=== PATIENT | female | born 1990 | race Caucasian/White ===

== ENCOUNTER 2018-04-01 15:15 | Outpatient (CLI) | payer BC | END 2018-04-01 15:16 | disposition home or self-care (01) | LOC: CTENTCT 15:15 | PROVIDERS: ATTEND Otolaryngology Plastic Surgery within the Head & Neck | DX: J01.81 Other acute recurrent sinusitis (principal) | CPT/HCPCS: 70486 ==

== ENCOUNTER 2019-07-09 10:43 | Outpatient (CLI) | payer BC ==
--- NOTE | 2019-07-09 13:02 | CT ---
CT NECK SOFT TISSUES NONCONTRAST: 07/09/2019 HISTORY: A 28-year-old female with neck pain. 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 In general, all CT's of the neck soft tissues should always be performed with intravenous contrast, u nless IV contrast is contraindicated (the other exception is parathyroid protocol, which is the only neck CT that should be performed with and without contrast). FINDINGS: Nonspecific small nodules in the left and right lobes of the thyroid gland. No thyromegaly. Normal tr achea and larynx. Within the limitations of a noncontrast scan, no gross soft tissue abnormality is s een. No cervical lymphadenopathy. Mild reversal of curvature. No facet DJD or high grade disk space n arrowing. Lung apices are clear. IMPRESSION: 1. Limited evaluation without IV contrast. See above discussion in TECHNIQUE. 2. No gross evidence of abscess or cervical lymphadenopathy. POS: [facility]
== END 2019-07-09 10:44 | disposition home or self-care (01) ==
LOC: SCSCT 10:43
PROVIDERS: ATTEND Family Medicine
DX: M54.2 Cervicalgia (principal)
CPT/HCPCS: 70490

== ENCOUNTER 2022-05-23 09:28 | Outpatient (CLI) | payer BC | END 2022-05-23 09:29 | disposition home or self-care (01) | LOC: RAD 09:28 | PROVIDERS: ATTEND Internal Medicine Critical Care Medicine | DX: R06.09 Other forms of dyspnea (principal) | CPT/HCPCS: 71046 ==

== ENCOUNTER 2023-01-22 08:14 | Outpatient (CLI) | payer BC ==
[2023-01-22] MEDS ORDERED: Iopamidol 370 76% 100 ML VIAL ONE (09:42)
== END 2023-01-22 08:15 | disposition home or self-care (01) ==
LOC: CT 08:14
PROVIDERS: ATTEND Internal Medicine
DX: K50.10 Crohn's disease of large intestine without complications (principal)
CPT/HCPCS: 74178

== ENCOUNTER 2025-05-20 12:16 | Day surgery (SDC) | payer BC ==
[2025-05-20] MEDS ORDERED: Sodium Bicarbonate 2.5 MEQ/5 ML SDV ONE (13:39)
[2025-05-20] MEDS ORDERED: Lidocaine 1% PF 5 ML VIAL ONE (13:39)
[2025-05-20 15:28] VITALS: BP 132/76
== END 2025-05-20 15:00 | disposition home or self-care (01) ==
LOC: ULT 12:16
PROVIDERS: ATTEND Specialist
DX: E04.1 Nontoxic single thyroid nodule (principal)
CPT/HCPCS: 10005; 88173